=== PATIENT | female | born 1965 | race Caucasian/White ===

== ENCOUNTER 2021-09-22 16:19 | Inpatient (IN) | payer MEDICARE, OTHER ==
[~2021-09-22] VITALS: Ht 157.5 cm; Wt 85.7 kg
--- NOTE | 2021-09-22 16:19 | NUR ---
PT [id number] FRM INTERMEDIATE C/O LOWER ABDOMINAL PAIN X 1 WEEK. DENIES N/V/D. PT IS AAOX4, NOT IN RESPIRATORY DISTRESS, HOOKED TO RIB CLOTH KNITTER, KEPT RESTED AND COMFORTABLE, WILL CONTINUE TO MONITOR.
--- NOTE | 2021-09-22 16:30 | NUR ---
URINE SPECIMEN COLLECTED AND SENT TO LAB.
--- NOTE | 2021-09-22 16:47 | NUR ---
PT IS BACK FROM [facility].
--- NOTE | 2021-09-22 16:50 | NUR ---
URINE SPECIMEN COLLECTED AND SENT TO LAB.
[2021-09-22 17:17] LABS: BASOPHILS # (AUTO) 0.1 K/uL (0.0-0.2); BASOPHILS % (AUTO) 1.2 % (0.0-2.0); EOSINOPHILS % (AUTO) 3.4 % (0.0-6.0); HEMATOCRIT 44 % (33-45); HEMOGLOBIN 14.8 g/dL (11.5-14.8); LYMPHOCYTES # (AUTO) 2.1 K/uL (0.8-4.8); LYMPHOCYTES % (AUTO) 40.8 % (20.0-44.0); MEAN CORPUSCULAR HGB CONC 34 g/dl (31.0-36.0); MEAN CORPUSCULAR VOLUME 89 fL (82-100); MONOCYTES # (AUTO) 0.5 K/uL (0.1-1.30); MONOCYTES % (AUTO) 8.9 % (2.0-12.0); NEUTROPHILS # (AUTO) 2.4 K/uL (1.8-8.9); NEUTROPHILS % (AUTO) 45.7 % (43.0-81.0); PLATELET COUNT (AUTO) 214 K/uL (150-450); RED BLOOD CELL COUNT(AUTO) 4.94 MIL/uL (4.0-5.2); WHITE BLOOD COUNT (AUTO) 5.2 K/uL (4.3-11.0)
[2021-09-22 17:26] LABS: BILIRUBIN,URINE NEGATIVE (NEGATIVE); COLOR,URINE YELLOW (YELLOW); LEUKOCYTE ESTERASE ,URINE NEGATIVE (NEGATIVE); NITRITE, URINE NEGATIVE (NEGATIVE); PROTEIN,URINE NEGATIVE (NEGATIVE); UGLUCOSE NEGATIVE (NEGATIVE); UROBILINOGEN,URINE 0.2 EU/dL (0.2)
[2021-09-22 17:47] LABS: ALANINE AMINOTRANSFERASE 40 U/L (12-78); ALBUMIN 3.9 g/dL (3.4-5.0); ALKALINE PHOSPHATASE 70 U/L (46-116); ASPARTATE AMINOTRANSFERASE 54 U/L (15-37); BILIRUBIN,TOTAL 0.3 mg/dL (0.2-1.0); CALCIUM, SERUM 9.2 mg/dL (8.5-10.1); CARBON DIOXIDE 25 mmol/L (21-32); CHLORIDE 104 mmol/L (98-107); GLUCOSE 121 mg/dL (74-106); LIPASE 107 U/L (73-393); SODIUM SERUM 137 mmol/L (136-145); TOTAL PROTEIN, SERUM 7.9 g/dL (6.4-8.2); UREA NITROGEN, BLOOD 21 mg/dL (7-18)
[2021-09-22 17:59] LABS: POTASSIUM 5.8 mmol/L (3.5-5.1)
[2021-09-22] MEDS ORDERED: MORPHINE SULFATE INJ 2 MG/ML DISP.SYRIN ONE ×2 (18:56→23:42)
[2021-09-22] MEDS ORDERED: MORPHINE SULFATE INJ 2 MG/ML DISP.SYRIN IV ONE (19:00)
--- NOTE | 2021-09-22 19:16 | NUR ---
COVID SPECIMEN COLLECTED AND SENT TO LAB.
--- NOTE | 2021-09-22 19:38 | NUR ---
CALLED GRACE PERRY NP FOR ADMISSION
--- NOTE | 2021-09-22 21:22 | NUR ---
TELEPHONE CALL TO LAB TO FOLLOW UP ON COVID SWAB, SPOKE WITH KATIA, SAID ONLY COVID THEY HAVE IS FOR ANOTHER PATIENT. 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
[2021-09-22] MEDS ORDERED: Z GUARD REMEDY 4 OZ OINT TP PRN (22:00)
[2021-09-22] MEDS ORDERED: ALPRAZOLAM 0.25 MG TABLET PO ONE (22:00)
[2021-09-22] MEDS ORDERED: IV NS 0.9% 1,000 ML IV ONE (22:00)
[2021-09-22] MEDS ORDERED: MAGNESIUM HYDROXIDE 30 ML UDC PO PRN (22:00)
[2021-09-22] MEDS ORDERED: FUROSEMIDE 20 MG/2 ML VIAL IV ONE (22:00)
[2021-09-22] MEDS ORDERED: ACETAMINOPHEN 325 MG TABLET PO PRN (22:00)
[2021-09-22] MEDS ORDERED: MAG HYDROX/AL HYDROX/SIMETH 30 ML UDC PO PRN (22:00)
[2021-09-22] MEDS ORDERED: TRAZ-257 PO (23:31)
[2021-09-22] MEDS ORDERED: DIPH50CA38 PO (23:31)
[2021-09-22] MEDS ORDERED: HYDR-4075 PO (23:31)
[2021-09-22] MEDS ORDERED: ATEN25TA PO (23:31)
[2021-09-22] MEDS ORDERED: GABA300C PO ×2 (23:31)
[2021-09-22] MEDS ORDERED: LISI40TA13 PO (23:31)
[2021-09-22] MEDS ORDERED: FERR325T23 PO (23:31)
[2021-09-22] MEDS ORDERED: HYDR-4303 PO (23:31)
[2021-09-22] MEDS ORDERED: FURO20TA4 PO (23:31)
[2021-09-22] MEDS ORDERED: TRAM50TA2 PO (23:31)
[2021-09-22] MEDS ORDERED: FLUT16SP NS (23:31)
[2021-09-22] MEDS ORDERED: HYDR15CR41 TP (23:31)
[2021-09-22] MEDS ORDERED: HYDR-500 PO (23:31)
[2021-09-22] MEDS ORDERED: CLON0.1T PO (23:31)
[2021-09-22] MEDS ORDERED: MELO-107 PO (23:31)
[2021-09-22] MEDS ORDERED: BENZ1TAB7 PO (23:31)
[2021-09-22] MEDS ORDERED: POTA20TA83 PO (23:31)
[2021-09-22] MEDS ORDERED: RISP1TAB97 PO (23:31)
[2021-09-22] MEDS ORDERED: ALPRAZOLAM 0.25 MG TABLET ONE (23:36)
[2021-09-22] MEDS: MORPHINE SULFATE INJ 2 MG/ML DISP.SYRIN IV PRN (23:48)
[2021-09-23] MEDS ORDERED: ONDANSETRON HCL/PF 4 MG/2 ML VIAL ONE (00:02)
[2021-09-23 00:03] LABS: CREATININE 1.1 mg/dL (0.6-1.3); POTASSIUM 3.6 mmol/L (3.5-5.1)
--- NOTE | 2021-09-23 00:19 | NUR ---
RESWABBED PATIENT FOR COVID ANTIGEN, SENT TO LAB
--- NOTE | 2021-09-23 01:10 | NUR ---
REPORT GIVEN TO RUSSEL CASTRO, PATIENT WILL BE TRANSFERRED TO [facility] [phone]
[2021-09-23] MEDS ORDERED: ENOXAPARIN SODIUM 40 MG/0.4 ML DISP.SYRIN SQ SCH (01:21)
[2021-09-23 01:30] VITALS: BP_SYST 111; BP_SYST 179; BP_DIAS 100; BP_DIAS 63
--- NOTE | 2021-09-23 01:30 | NUR ---
PATIENT TRANSFERRED TO UNIT VIA GURNEY IN STABLE CONDITION. BELONGINGS WITH PATIENT. PATIENT AMBULATED FROM RNEY TO BED.
--- NOTE | 2021-09-23 01:45 | NUR ---
MS LOIN PULLER NOTE PATIENT ARRIVED ON UNIT, ALERT/ORIENTED X 4, PT ABLE TO MAKE NEEDS KNOWN. PATIENT REPORTING HEADACHE, WILL GIVE TYLENOL 650 MG PO ORDERED. PT STATES THAT SHE NEEDS TO EAT AND WILL GO AGAINST DOCTOR'S ORDERS IF SHE CAN'T EAT. PT ALSO HAS HIGH BP OF 170/100, HR: 55, HOWEVER, PATIENT IS VERY ANXIOUS AND RESTLESS, NOTIFIED WIRE ROPE FABRICATION SUPERVISOR MD WITH ORDER TO ADVANCE DIET TOLERATED. PATIENT ALSO REFUSED IVF, STATES SHE JUST WANTS TO SLEEP AND DOESN'T WANT TO BE UP ALL NIGHT HAVING TO PEE. WIRE ROPE FABRICATION SUPERVISOR MD GAVE ONE TIME DOSE OF TRAZODONE 100 MG PO FOR SLEEP. PATIENT REPORTS HISTORY OF HTN, FIBROMYALGIA, CHRONIC FATIGUE, ANXIETY AND MAJOR DEPRESSIVE DISORDER, DENIES SUICIDE IDEATION AT THIS TIME. PATIENT STATES SHE HAS NO KNOWN ALLERGIES. IV ACCESS ON LEFT HAND #20G INTACT AND FLUSHING WELL. PATIENT BELONGINGS DOCUMENTED AND SHEET PLACED IN CHART. PATIENT REFUSED LOVENOX DESPITE EXPLANATION OF RISKS AND BENEFITS. PATIENT IS AMBULATORY WITH STEADY GAIT. ORIENTED PATIENT TO UNIT AND HOW TO USE CALL LIGHT AND REMOTE. SAFETY MEASURES IN PLACE: CALL LIGHT WITHIN REACH, SIDE RAILS UP X 2, BED LOCKED IN LOW POSITION. WILL CONTINUE TO MONITOR PATIENT
[2021-09-23] MEDS ORDERED: TRAZODONE 50 MG TABLET PO ONE (02:15)
[2021-09-23 02:30] VITALS: BP 158/95
[2021-09-23] MEDS: ONDANSETRON HCL/PF 4 MG/2 ML VIAL IVP PRN ×2 (04:06→12:07)
[2021-09-23] MEDS: ALPRAZOLAM 0.25 MG TABLET PO PRN ×2 (04:11→11:41)
--- NOTE | 2021-09-23 04:15 | NUR ---
MS RN NOTE PATIENT STATES SHE IS FEELING NAUSEOUS, PRN ZOFRAN 4 MG IV GIVEN ORDERED. PATIENT ALSO VERY ANXIOUS AND TENSE, REQUESTED XANAX, MEDICATION XANAX 0.25 MG PO GIVEN ORDERED.
[2021-09-23] MEDS: MORPHINE SULFATE INJ 2 MG/ML DISP.SYRIN IV PRN (06:05)
--- NOTE | 2021-09-23 06:15 | NUR ---
MS RN NOTE PATIENT REPORTING 8/10 ABDOMINAL PAIN, PRN MORPHINE 2 MG IV GIVEN ORDERED. WILL CONTINUE TO MONITOR PATIENT
[2021-09-23 06:20] LABS: BASOPHILS % (AUTO) 0.7 % (0.0-2.0); EOSINOPHILS % (AUTO) 3.9 % (0.0-6.0); HEMATOCRIT 43 % (33-45); HEMOGLOBIN 14.3 g/dL (11.5-14.8); LYMPHOCYTES # (AUTO) 2.3 K/uL (0.8-4.8); LYMPHOCYTES % (AUTO) 36.3 % (20.0-44.0); MEAN CORPUSCULAR HGB CONC 33 g/dl (31.0-36.0); MEAN CORPUSCULAR VOLUME 90 fL (82-100); MONOCYTES # (AUTO) 0.6 K/uL (0.1-1.30); MONOCYTES % (AUTO) 9.3 % (2.0-12.0); NEUTROPHILS # (AUTO) 3.1 K/uL (1.8-8.9); NEUTROPHILS % (AUTO) 49.8 % (43.0-81.0); PLATELET COUNT (AUTO) 206 K/uL (150-450); RED BLOOD CELL COUNT(AUTO) 4.78 MIL/uL (4.0-5.2); WHITE BLOOD COUNT (AUTO) 6.2 K/uL (4.3-11.0)
[2021-09-23 06:40] LABS: ALBUMIN 3.9 g/dL (3.4-5.0); BILIRUBIN,DIRECT 0.1 mg/dL (0.0-0.2); BILIRUBIN,TOTAL 0.3 mg/dL (0.2-1.0); CALCIUM, SERUM 8.6 mg/dL (8.5-10.1); MAGNESIUM 2.4 mg/dL (1.8-2.4); PHOSPHORUS 4.4 mg/dL (2.5-4.9); POTASSIUM 3.9 mmol/L (3.5-5.1); TOTAL PROTEIN, SERUM 6.8 g/dL (6.4-8.2)
--- NOTE | 2021-09-23 06:54 | NUR ---
MS RN CLOSING NOTE PATIENT AWAKE IN BED, PATIENT WAS VERY ANXIOUS AND TENSE ALL NIGHT, STATED SHE COULDN'T SLEEP BECAUSE "BED WAS TOO UNCOMFORTABLE". PATIENT STABLE ON RA, NO S/S OF DISTRESS OR SOB NOTED, BREATHING EVEN AND UNLABORED. IV ACCESS ON LEFT HAND INTACT AND SALINE LOCKED, PATIENT REFUSED IVF. SNACKS PROVIDED TO PATIENT THROUGHOUT NIGHT PER REQUEST. MEDICATIONS GIVEN ORDERED, PT NEEDS MET THROUGHOUT NIGHT. SAFETY MEASURES IN PLACE: CALL LIGHT WITHIN REACH, SIDE RAILS UP X 2, BED LOCKED IN LOW POSITION. WILL ENDORSE TO DAY SHIFT NURSE FOR CONTINUITY OF CARE
[2021-09-23] MEDS ORDERED: PANTOPRAZOLE 40 MG TABLET.DR PO SCH (07:30)
--- NOTE | 2021-09-23 07:57 | NUR ---
RN OPENING NOTE PATIENT RECEIVED IN BED, AO X 4, IN NO ACUTE DISTRESS NOTED. RESPIRATORY EVEN AND UNLABORED ON ROOM AIR. SKIN IS WARM TO TOUCH, KEEP CLEAN/DRY, INTACT IV SITE. KEPT ELEVATED HOB FOR ENSURE AIRWAY AND ASPIRATION PRECAUTION, ALSO LOWEST POSITION OF THE BED, S/R UP X 2 FOR SAFETY. ALL SAFETY PRECAUTION APPLIED. CALL LIGHT WITHIN REACH, WILL CONTINUE TO MONITOR.
[2021-09-23] MEDS: GABAPENTIN 300 MG CAPSULE PO SCH ×2 (08:11→12:06)
[2021-09-23 08:18] VITALS: BP 139/95
[2021-09-23] MEDS ORDERED: FUROSEMIDE 20 MG TABLET PO SCH (09:00)
[2021-09-23] MEDS ORDERED: ATENOLOL 25 MG TABLET PO SCH (09:00)
[2021-09-23] MEDS ORDERED: hydrALAZINE HCL 10 MG TABLET PO SCH (09:00)
[2021-09-23] MEDS ORDERED: FERROUS SULFATE (325 MG) 325 MG/TAB TABLET PO SCH (09:00)
[2021-09-23] MEDS ORDERED: FLUTICASONE PROPIONATE 16 GM BOTTLE NS SCH (09:00)
[2021-09-23] MEDS ORDERED: LISINOPRIL (20MG) 20 MG TABLET PO SCH (09:00)
[2021-09-23 11:30] LABS: AMYLASE 30 U/L (25-115); LIPASE 68 U/L (73-393)
[2021-09-23] MEDS ORDERED: KETOROLAC TROMETHAMINE INJ 30 MG/ML VIAL IV PRN (11:30)
[2021-09-23] MEDS ORDERED: DICY10CA37 PO (14:31)
[2021-09-23] MEDS ORDERED: METH500T4 PO (14:31)
--- NOTE | 2021-09-23 15:13 | NUR ---
PATIENT DISCHARGE TO [facility], GIVEN DISCHARGE INSTRUCTION INCLUDE: PICKUP NEW MEDICATIONS AND FOLLOW UP DR. LAUREN OFFICE. PROVIDED CT ABDOMEN CD. PATIENT IN NO ACUTE DISTRESS OBSERVED AT THIS TIME.
[2021-09-23] MEDS ORDERED: BENZTROPINE MESYLATE (1 MG) 1 MG TABLET PO SCH (22:00)
[2021-09-23] MEDS ORDERED: diphenhydrAMINE HCL 50 MG CAPSULE PO SCH (22:00)
[2021-09-23] MEDS ORDERED: TRAZODONE 50 MG TABLET PO SCH (22:00)
[2021-09-23] MEDS ORDERED: risperiDONE 1 MG TABLET PO SCH (22:00)
== END 2021-09-23 15:18 | disposition home or self-care (01) | DRG 392 ==
LOC: ER 16:22 → MED 09-23 01:14
PROVIDERS: ADMIT Nurse Practitioner Family; ATTEND Nurse Practitioner Acute Care
DX: K59.00 Constipation, unspecified (principal); R14.0 Abdominal distension (gaseous); E87.5 Hyperkalemia; R73.9 Hyperglycemia, unspecified; I10 Essential (primary) hypertension; F41.9 Anxiety disorder, unspecified; F32.A Depression, unspecified; Z20.822 Contact with and (suspected) exposure to COVID-19
CPT/HCPCS: 36415; 80048-TC; 80061-TC; 80076-TC; 82150-TC; 83690-TC; 83735-TC; 84100-TC; 84484-TC; 85025-TC; 87081-TC; C9803; G0378; J2270; J2405

== ENCOUNTER 2024-03-14 09:53 | Emergency (ER) | payer OTHER, MEDICAID ==
[~2024-03-14] VITALS: Ht 157.5 cm; Wt 81.6 kg
[~2024-03-14 09:53] MED LIST: ATEN25TA PO; BENZ1TAB7 PO; CLON0.1T PO; DICY10CA37 PO; DIPH50CA38 PO; FERR325T23 PO; FLUT16SP NS; FURO20TA4 PO; GABA300C PO; HYDR-4075 PO; HYDR-4303 PO; HYDR-500 PO; HYDR15CR41 TP; LISI40TA13 PO; MELO-107 PO; METH500T4 PO; POTA20TA83 PO; RISP1TAB97 PO; TRAM50TA2 PO; TRAZ-257 PO
--- NOTE | 2024-03-14 10:18 | NUR ---
BIB self, C/O right shoulder pain x 1 week, patient states she was in yoga class, was stretching when she suddenly felt shooting pain. To ER bed 9, hooked to monitor, changed to hosp gown, warm blanket provided, awaiting MD fraser
--- NOTE | 2024-03-14 11:00 | NUR ---
Dr Blackman at bedside
[2024-03-14] MEDS: TRAMADOL HCL 50 MG TABLET PO ONE (11:07)
[2024-03-14] MEDS ORDERED: TRAMADOL HCL 50 MG TABLET ONE (11:07)
--- NOTE | 2024-03-14 11:10 | NUR ---
50 mg tramadol administered as ordered. Will continue to monitor
--- NOTE | 2024-03-14 11:36 | NUR ---
RAY CM [phone]
[2024-03-14] MEDS ORDERED: TRAM50TA2 PO (12:26)
--- NOTE | 2024-03-14 12:31 | NUR ---
Medicated as ordered. SEE eMAR
[2024-03-14] MEDS ORDERED: KETOROLAC TROMETHAMINE INJ 30 MG/ML VIAL ONE (12:36)
[2024-03-14] MEDS: KETOROLAC TROMETHAMINE INJ 30 MG/ML VIAL IM ONE (12:40)
--- NOTE | 2024-03-14 12:49 | NUR ---
Patient discharged to home in stable condition. Written and verbal after care instructions given. Patient verbalizes understanding of instruction.
[2024-03-14 12:50] VITALS: BP 164/98; TEMP 98.2; O2SAT 98
== END 2024-03-14 12:50 | disposition home or self-care (01) ==
LOC: ER 10:14
DX: M25.511 Pain in right shoulder (principal); I10 Essential (primary) hypertension; Z79.899 Other long term (current) drug therapy; Z79.891 Long term (current) use of opiate analgesic
CPT/HCPCS: 99283; 96372; 73030; J1885

== ENCOUNTER 2025-07-12 13:38 | Emergency (ER) | payer MEDICARE, MEDICAID ==
[~2025-07-12] VITALS: Ht 170.2 cm; Wt 95.3 kg
[2025-07-12 13:51] VITALS: TEMP 99
[2025-07-12] MEDS ORDERED: METOCLOPRAMIDE HCL 10 MG/2 ML VIAL ONE (15:41)
[2025-07-12] MEDS: IV NS 0.9% 1,000 ML BAG IV ONE (16:00)
[2025-07-12] MEDS: METOCLOPRAMIDE HCL 10 MG/2 ML VIAL IV ONE (16:05)
[2025-07-12 16:16] LABS: PLATELET COUNT (AUTO) 213 K/uL (150-450); RED BLOOD CELL COUNT(AUTO) 4.66 MIL/uL (4.0-5.2); RED CELL DISTRIBUTION WIDTH 14.8 % (11.5-15.0); WHITE BLOOD COUNT (AUTO) 5.4 K/uL (4.3-11.0)
[2025-07-12 16:24] LABS: CALCIUM, SERUM 9.3 mg/dL (8.5-10.1); CREATININE 1.0 mg/dL (0.6-1.3); SODIUM SERUM 144.0 mmol/L (136-145); UREA NITROGEN, BLOOD 22.0 mg/dL (7-18)
[2025-07-12] MEDS ORDERED: KETOROLAC TROMETHAMINE INJ 30 MG/ML VIAL ONE (17:04)
[2025-07-12] MEDS ORDERED: ACETAMINOPHEN 325 MG TABLET ONE (17:04)
[2025-07-12] MEDS: KETOROLAC TROMETHAMINE INJ 30 MG/ML VIAL IV ONE (17:09)
[2025-07-12] MEDS: ACETAMINOPHEN 325 MG TABLET PO ONE (17:09)
[2025-07-12] MEDS ORDERED: IBUP-1490 PO (18:16)
[2025-07-12 18:28] VITALS: BP 126/78; O2SAT 98
== END 2025-07-12 18:20 | disposition home or self-care (01) ==
LOC: ER 13:40
DX: R51.9 Headache, unspecified (principal); R09.81 Nasal congestion; I10 Essential (primary) hypertension; M79.7 Fibromyalgia; Z79.899 Other long term (current) drug therapy; Z20.822 Contact with and (suspected) exposure to COVID-19
CPT/HCPCS: 99285; 96374; 70450; 96375; 96361; 87426; 87804 ×2; 85025; 80048; 36415; J1885; J1200; J2765; J7030